=== PATIENT | female | born 1990 | race Caucasian/White ===

== ENCOUNTER 2018-09-07 20:52 | Emergency (ER) | payer BC ==
[~2018-09-07] VITALS: Ht 157.5 cm; Wt 63.5 kg
--- NOTE | 2018-09-07 21:01 | NUR ---
BIBS FOR C/O GENERALIZED RASHES/ HIVES SINCE YESTERDAY AND H/A. NO SOB. VSS, WILL CONT TO MONITOR ,
[2018-09-07] MEDS ORDERED: ACETAMINOPHEN ES 500 MG TABLET ONE (21:15)
[2018-09-07] MEDS ORDERED: diphenhydrAMINE HCL 50 MG/ML VIAL ONE (21:15)
[2018-09-07] MEDS ORDERED: methylPREDNISolone SOD SUCC 125 MG/2ML VIAL ONE (21:15)
[2018-09-07] MEDS ORDERED: FAMOTIDINE/PF INJ 20 MG/2 ML VIAL IV ONE ×2 (21:16→21:30)
[2018-09-07] MEDS ORDERED: IV NS 0.9% 1,000 ML BAG IV ONE (21:30)
[2018-09-07] MEDS ORDERED: ACETAMINOPHEN 325 MG TABLET PO ONE (21:30)
[2018-09-07] MEDS ORDERED: methylPREDNISolone SOD SUCC 125 MG/2ML VIAL IV ONE (21:30)
[2018-09-07] MEDS ORDERED: diphenhydrAMINE HCL 50 MG/ML VIAL IV ONE (21:30)
--- NOTE | 2018-09-07 21:57 | NUR ---
Patient is resting comfortably in bed with eyes closed. Easily aroused. VSS
[2018-09-07 22:53] VITALS: BP 114/74
--- NOTE | 2018-09-07 23:14 | NUR ---
IV removed. Catheter intact and site benign. Pressure and 4x4 applied to site. No bleeding noted. Patient discharged to home in stable condition. Written and verbal after care instructions given. Patient verbalizes understanding of instruction.
== END 2018-09-07 23:16 | disposition home or self-care (01) ==
LOC: ER 20:52
DX: T78.40XA Allergy, unspecified, initial encounter (principal); Z88.6 Allergy status to analgesic agent; X58.XXXA Exposure to other specified factors, initial encounter
CPT/HCPCS: 96374; 96375; 99283; J1200; J2930; J3490; J7030

== ENCOUNTER 2018-09-09 13:59 | Emergency (ER) | payer BC ==
[~2018-09-09] VITALS: Ht 157.5 cm; Wt 63.5 kg
[2018-09-09 14:25] LABS: BASOPHILS % (AUTO) 0.1 % (0.0-2.0); EOSINOPHILS % (AUTO) 0.1 % (0.0-6.0); HEMATOCRIT 39 % (33-45); HEMOGLOBIN 13.2 g/dL (11.5-14.8); LYMPHOCYTES # (AUTO) 1.9 /CMM (0.8-4.8); LYMPHOCYTES % (AUTO) 15.1 % (20.0-44.0); MEAN CORPUSCULAR HGB CONC 34 g/dl (31.0-36.0); MEAN CORPUSCULAR VOLUME 90 fL (82-100); MONOCYTES # (AUTO) 0.5 /CMM (0.1-1.30); MONOCYTES % (AUTO) 4.2 % (2.0-12.0); NEUTROPHILS # (AUTO) 10.2 /CMM (1.8-8.9); NEUTROPHILS % (AUTO) 80.5 % (43.0-81.0); PLATELET COUNT (AUTO) 250 /CMM (150-450); RED BLOOD CELL COUNT(AUTO) 4.33 MIL/uL (4.0-5.2); WHITE BLOOD COUNT (AUTO) 12.7 K/uL (4.3-11.0)
[2018-09-09 14:34] LABS: CALCIUM, SERUM 8.5 mg/dL (8.5-10.1); CREATININE 0.7 mg/dL (0.6-1.3); POTASSIUM 3.4 mmol/L (3.5-5.1)
[2018-09-09 14:42] VITALS: BP 127/54
[2018-09-09 14:45] LABS: ALBUMIN 3.5 g/dL (3.4-5.0); BILIRUBIN,TOTAL 0.4 mg/dL (0.2-1.0); TOTAL PROTEIN, SERUM 6.5 g/dL (6.4-8.2)
== END 2018-09-09 15:11 | disposition home or self-care (01) ==
LOC: ER 14:07
DX: T78.40XA Allergy, unspecified, initial encounter (principal); X58.XXXA Exposure to other specified factors, initial encounter; Z88.6 Allergy status to analgesic agent
CPT/HCPCS: 36415; 80053-TC; 85025-TC

== ENCOUNTER 2019-03-16 12:45 | Emergency (ER) | payer BC, OTHER ==
[~2019-03-16] VITALS: Ht 167.6 cm; Wt 68.0 kg
[2019-03-16 13:11] VITALS: BP 101/71
[2019-03-16] MEDS ORDERED: DOCUSATE SODIUM LIQ 100 MG/10 ML UDC ONE (13:22)
[2019-03-16] MEDS ORDERED: DOCUSATE SODIUM LIQ 100 MG/10 ML UDC NG ONE (13:30)
== END 2019-03-16 14:10 | disposition home or self-care (01) ==
LOC: ER 12:46
DX: H61.23 Impacted cerumen, bilateral (principal); Z88.6 Allergy status to analgesic agent

== ENCOUNTER 2020-01-25 12:54 | Emergency (ER) | payer BC, OTHER ==
[~2020-01-25] VITALS: Ht 157.5 cm; Wt 74.8 kg
--- NOTE | 2020-01-25 13:15 | NUR ---
ambulatory to ER, c/o nausea and vomiting, unable to keep food/fluids down. 8 weeks , to Er bed 16, hooked to monitor, changed to hosp gown, warm lanket provided, patient aao X 4. breathing even and unlabored. Dr Wilson at bedside
[2020-01-25] MEDS: IV NS 0.9% 1,000 ML BAG IV ONE (13:39)
--- NOTE | 2020-01-25 13:45 | NUR ---
PATIENT NOT ABLE TO [id number] URINE SAMPLE. MD ULOLA
[2020-01-25 13:47] LABS: BASOPHILS % (AUTO) 0.5 % (0.0-2.0); EOSINOPHILS % (AUTO) 6.2 % (0.0-6.0); HEMATOCRIT 40 % (33-45); HEMOGLOBIN 13.8 g/dL (11.5-14.8); LYMPHOCYTES % (AUTO) 16.3 % (20.0-44.0); MEAN CORPUSCULAR HGB CONC 34 g/dl (31.0-36.0); MEAN CORPUSCULAR VOLUME 90 fL (82-100); MONOCYTES # (AUTO) 0.4 /CMM (0.1-1.30); MONOCYTES % (AUTO) 6.1 % (2.0-12.0); NEUTROPHILS # (AUTO) 4.4 /CMM (1.8-8.9); NEUTROPHILS % (AUTO) 70.9 % (43.0-81.0); PLATELET COUNT (AUTO) 225 /CMM (150-450); RED BLOOD CELL COUNT(AUTO) 4.46 MIL/uL (4.0-5.2); WHITE BLOOD COUNT (AUTO) 6.2 K/uL (4.3-11.0)
[2020-01-25 13:51] LABS: CREATININE 0.7 mg/dL (0.6-1.3); POTASSIUM 3.4 mmol/L (3.5-5.1)
[2020-01-25 13:57] LABS: ALBUMIN 3.5 g/dL (3.4-5.0); BILIRUBIN,DIRECT 0.2 mg/dL (0.0-0.2); BILIRUBIN,TOTAL 0.8 mg/dL (0.2-1.0); TOTAL PROTEIN, SERUM 7.1 g/dL (6.4-8.2)
--- NOTE | 2020-01-25 14:55 | NUR ---
IV removed. Catheter intact and site benign. Pressure and 4x4 applied to site. No bleeding noted.Patient discharged to home in stable condition. Written and verbal after care instructions given. Patient verbalizes understanding of instruction.
[2020-01-25 14:56] VITALS: BP 109/67
== END 2020-01-25 14:56 | disposition home or self-care (01) ==
LOC: ER 12:57
DX: O21.0 Mild hyperemesis gravidarum (principal); Z3A.08 8 weeks gestation of pregnancy; Z88.6 Allergy status to analgesic agent
CPT/HCPCS: 36415; 80048; 80076; 85025; 96360; 99283; J7030